=== PATIENT | female | born 1945 | race Caucasian/White ===

== ENCOUNTER 2018-12-16 | Emergency (ER) | payer OTHER ==
[~2018-12-16] VITALS: Ht 162.6 cm; Wt 111.4 kg
[2018-12-16 00:04] VITALS: BP 148/90; Ht 162.6 cm; Wt 111.4 kg
[2018-12-16] MEDS ORDERED: EYE DROPS (00:05)
[2018-12-16] MEDS ORDERED: COZAAR25 MG PO (00:05)
[2018-12-16] MEDS ORDERED: TYLENOL W/CODEI1 TAB PO (01:01)
== END 2018-12-16 01:14 | disposition home or self-care (01) ==
LOC: D.ER
DX: M25.511 Pain in right shoulder (principal); M75.41 Impingement syndrome of right shoulder; I10 Essential (primary) hypertension